=== PATIENT | female | born 1990 | race Caucasian/White ===

== ENCOUNTER 2018-05-24 04:40 | Emergency (ER) | payer BC ==
[2018-05-24] MEDS ORDERED: LORazepam TAB(*) 1 MG PO ONE (05:54)
--- NOTE | 2018-05-24 05:55 | ED ---
Pediatric Illness - HPI Summary HPI Summary: Pt. 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 Pt.'s is at school at [employer]. Pt. states she came to [place] this week to visit her when she found out she has been having an affair. Pt. states she has not been able to sleep in days and has been very anxious. She denies past medical hx. Denies hx of anxiety /depression. Pt. denies suicidal or homicidal ideations. Pt.'s mother present. Sxs are mild in severity. No current modifying factors. - History Of Current Complaint Chief Complaint: EDPsychosocial Time Seen by Provider: 05/24/18 05:09 Hx Obtained From: Patient - Allergies/Home Medications Allergies/Adverse Reactions: Allergies Allergy/AdvReac Type Severity Reaction Status Date / Time No Known Allergies Allergy Verified 05/24/18 05:03 Pediatric Past Medical History - Surgical History Surgical History: None - Infectious Disease History Infectious Disease History: No Infectious Disease History: Denies: Traveled Outside the [place] in Last 30 Days Physical Exam Vital Signs On Initial Exam: Initial Vitals Temp Pulse Resp BP Pulse Ox 98.3 F 95 18 112/97 94 05/24/18 05:01 05/24/18 05:01 05/24/18 05:01 05/24/18 05:01 05/24/18 05:01 Diagnostics - Vital Signs Vital Signs Temp Pulse Resp BP Pulse Ox 05/24/18 05:01 98.3 F 95 18 112/97 94 - Laboratory Lab Statement: Any lab studies that have been ordered have been reviewed, and results considered in the medical decision making process. Discharge - Discharge Plan Referrals: No Primary Care Phys,NOPCP [Primary Care Provider] -
--- NOTE | 2018-05-24 06:49 | ED ---
Psychiatric Complaint - HPI Summary HPI Summary: Pt. 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 Pt. states she came to [place] this week to visit her when she found out she has been having an affair. Pt. states she has not been able to sleep in days and has been very anxious. She denies past medical hx. Denies hx of anxiety /depression. Pt. denies suicidal or homicidal ideations. Pt.'s mother present. Sxs are mild in severity. No current modifying factors. Pt. admits to a glass of wine at dinner but otherwise denies drug use. - History Of Current Complaint Chief Complaint: EDPsychosocial Time Seen by Provider: 05/24/18 05:09 Hx Obtained From: Patient Hx Last Menstrual Period: 05/15/14 - Allergies/Home Medications Allergies/Adverse Reactions: Allergies Allergy/AdvReac Type Severity Reaction Status Date / Time No Known Allergies Allergy Verified 05/24/18 05:03 PMH/Surg Hx/FS Hx/Imm Hx Previously Healthy: Yes Infectious Disease History: No Infectious Disease History: Denies: Traveled Outside the [place] in Last 30 Days - Family History Known Family History: Positive: Other - depression - Social History Occupation: Student Lives: With Family Alcohol Use: Occasionally Alcohol Amount: wine Substance Use Type: Reports: None Smoking Status (MU): Never Smoked Tobacco Review of Systems Cardiovascular: Negative Negative: Chest Pain Respiratory: Negative Negative: Shortness Of Breath Positive: Nausea Neurological: Negative Positive: Anxious All Other Systems Reviewed And Are Negative: Yes Physical Exam Triage Information Reviewed: Yes Vital Signs On Initial Exam: Initial Vitals Temp Pulse Resp BP Pulse Ox 98.3 F 95 18 112/97 94 05/24/18 05:01 05/24/18 05:01 05/24/18 05:01 05/24/18 05:01 05/24/18 05:01 Vital Signs Reviewed: Yes Appearance: Positive: Well-Nourished - Pt. lying in bed on her side shaking. Very anxious but nontoxic. Mother present. Skin: Positive: Warm, Dry Head/Face: Positive: Normal Head/Face Inspection Eyes: Positive: Normal, EOMI Neck: Positive: Supple Respiratory/Lung Sounds: Positive: Clear to Auscultation, Breath Sounds Present Cardiovascular: Positive: Normal, RRR Musculoskeletal: Positive: Normal, Strength/ROM Intact Neurological: Positive: Normal, CN Intact II-III Psychiatric: Positive: Anxious Diagnostics - Vital Signs Vital Signs Temp Pulse Resp BP Pulse Ox 05/24/18 05:58 16 05/24/18 05:01 98.3 F 95 18 112/97 94 - Laboratory Lab Statement: Any lab studies that have been ordered have been reviewed, and results considered in the medical decision making process. Course/Dx - Course Course Of Treatment: Pt. presenting for anxiety after a recent stressor. She denies SI or HI. Pt. states she feels safe at home. Pt. offered MHE which she declines, which is reasonable at this time. Pt. states she "just needs to sleep. " Pt. was given a dose of ativan in ED. 0648: Pt. sleeping comfortably at this time. Pt. feeling better after medication. Mother requesting discharge. Pt. given INFO for f.u at the [facility] Pt. states she will be going back to [place] soon and would prefer to pursue potential outpt. therapy if needed. To return to ER if needed. Pt. dc home stable with mother. - Differential Dx/Clinical Impression Differential Diagnosis/HQI/PQRI: Positive: Acute Psychosis, Anxiety, Depression Provider Diagnosis: Anxiety Discharge - Sign-Out/Discharge Documenting (check all that apply): Patient Departure Patient Received Moderate/Deep Sedation with Procedure: No - Discharge Plan Condition: Improved Disposition: HOME Patient Education Materials: Anxiety (ED) Referrals: [facility] [Outside] Additional Instructions: Please schedule a follow up appointment with the [facility] Return to ER if symptoms change or worsen - Billing Disposition and Condition Condition: IMPROVED Disposition: Home
[2018-05-24 07:25] VITALS: BP 125/74
== END 2018-05-24 07:24 | disposition home or self-care (01) ==
LOC: ED 04:40
DX: F41.9 Anxiety disorder, unspecified (principal)
CPT/HCPCS: 99282; A9270-GY